=== PATIENT | female | born 2005 | race Caucasian/White ===

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

== ENCOUNTER 2023-10-16 22:20 | Emergency (ER) | payer OTHER, SELFPAY ==
--- NOTE | ~2023-10-16 | CT_ITS ---
EXAMINATION: CT abdomen pelvis w con DATE: 10/17/2023 02:21 INDICATION: Abdominal pain and 3 weeks of nausea and vomiting TECHNIQUE: Computed tomography (CT) of the abdomen and pelvis was performed with 100 mL Omnipaque-350 intravenous contrast. Automated exposure control and iterative reconstruction technique were employe d. The dose-length product was 1529.97 mGy-cm. COMPARISON: None FINDINGS: Minimal dependent atelectasis in the right lower lobe. Heart size is normal. No pericardial or pleura l effusion. Liver, gallbladder, pancreas, bilateral adrenal glands and kidneys are normal. Nonspecifi c splenomegaly measuring 15 cm in length. Bowels including the appendix are normal. Bladder, uterus a nd bilateral adnexa are unremarkable. No free intraperitoneal gas or fluid. No pathologically enlarge d abdominal or pelvic lymphadenopathy. Mild thoracic spondylosis with mild anterior wedging at T11. IMPRESSION: 1. No acute intra-abdominal/pelvic process. 2. Nonspecific mild splenomegaly. Reviewed, dictated and finalized at location A.
[2023-10-16 22:35] VITALS: BP 124/85; PULSE 105; RESP 16; O2SAT 97
[2023-10-16 22:59] LABS: BEDSIDEPREGUCG Negative
[2023-10-16 23:15] LABS: Hematocrit 38.3 % (37.0-47.0); Hemoglobin 12.6 g/dL (12.0-15.0); Mean Corpuscular HGB Conc 32.9 g/dl (32-36); Mean Corpuscular Hemoglobin 27.8 pg (26-34); Mean Corpuscular Volume 84.4 fl (80-100); Mean Platelet Volume 10.1 fl (7.4-10.4); Platelet Count Result 221 k/mm3 (150-375); Red Blood Count 4.54 M/mm3 (4.2-5.4); Red Cell Distribution Width 15.3 % (11.5-14.5)
[2023-10-16 23:22] LABS: Appearance Urine Clear (Clear); Bacteria Urine None Seen /hpf; Bilirubin Urine Negative (Negative); Blood Urine Negative (Negative); Color Urine Dark Yellow (Yellow); Glucose Urine UA Negative (Negative); Ketones Urine Trace mg/dL (Negative); Leukocyte Esterase Ur Trace LEU/UL (Negative); Nitrate Urine Negative (Negative); Non Pathogenic Casts 0-2; Protein Urine 1+ mg/dL (Negative); RBC Urine 0-2 /hpf (0-2); Specific Grav Ur 1.019 (1.001-1.035); Squamous Epithelial Cell Urine Few /hpf (Few); WBC Urine 0-5 /hpf (0-3)
[2023-10-16 23:27] LABS: Alanine Aminotransferase 151 U/L (6-35); Albumin Level 3.7 g/dL (3.5-5.1); Alkaline Phosphatase 81 U/L (38-126); Anion Gap 8 mmol/L (4-12); Aspartate Amino Transferase 146 U/L (14-36); Bilirubin,Total 0.9 mg/dL (0.2-1.3); Blood Urea Nitrogen 7 mg/dL (7-17); Calcium 8.4 mg/dL (8.4-10.2); Carbon Dioxide 28 mmol/L (22-30); Chloride 100 mmol/L (98-107); Estimated Glomerular Filt Rate > 60; Glucose 102 mg/dL (65-110); Lipase 132 U/L (23-300); Potassium 3.5 mmol/L (3.4-5.0); Sodium 136 mmol/L (137-145)
[2023-10-16 23:34] LABS: Add Urine Microscopic? YES
[2023-10-16 23:47] LABS: Atypical Lymphocytes Present; Band Neutrophils Percent 11 % (0-6); Eosinophils Percent Manual 1 % (0-4); Monocytes Percent Manual 7 % (3-9); Neutrophils Percent Manual 55 % (46-73); Platelet Estimate Adequate (Adequate); Total Cells Counted 100
[2023-10-16 23:48] LABS: Anisocytosis 1+; Schistocytes None Seen
[2023-10-17 00:04] VITALS: BP 113/82; PULSE 93; RESP 15; O2SAT 97
[2023-10-17 01:36] VITALS: BP 120/70; PULSE 90; RESP 15; O2SAT 100
--- NOTE | 2023-10-17 01:39 | ED.NAVMDI ---
HPI - Nausea/Vomiting/Diarrhea General Chief complaint: Nausea/Vomiting/Diarrhea Stated complaint: n/v, possible fever, dizziness, headache Time Seen by Provider: 10/17/23 00:29 Source: patient Mode of arrival: ambulatory Limitations: no limitations History of Present Illness HPI Narrative: Patient is a 18-year-old female who presents the ED with complaints. Patient reports having persistent nausea and vomiting since around 09/30. She states she has been unable to keep down any food or drink over the last few days. She denies significant abdominal pain. Also reports a cough for the last 3 weeks, intermittent dizziness, intermittent headaches, myalgias, chills, diaphoresis. She denies any known fever. Denies diarrhea, constipation, shortness of breath, urinary complaints. patient has not tried contacting her doctor. She does Smoke marijuana. Related Data Home Medications Medication Instructions Recorded Confirmed bupropion HCl 150 mg 24 hr tablet, 150 mg PO DAILY 02/11/22 02/11/22 extended release levonorgestrel 120 mcg-e.estradiol 1 patch transdermal WEEKLY 02/11/22 02/11/22 30 mcg/24 hr weekly transderm patch (Twirla) Allergies Allergy/AdvReac Type Severity Reaction Status Date / Time buspirone [From BuSpar] Allergy Unknown Verified 10/16/23 22:21 Review of Systems Review of Systems: CONSTITUTIONAL: See HPI RESPIRATORY: See HPI GASTROINTESTINAL: See HPI. GENITOURINARY: Denies dysuria or hematuria. MUSCULOSKELETAL: Reports myalgia. NEUROLOGIC: See HPI All systems reviewed & are unremarkable except as noted in HPI and below PMFSH Past Medical History Medical History No significant past medical history Exam Narrative: GENERAL: Well appearing, morbidly obese, non-toxic, in no acute distress. HEAD: Normocephalic, atraumatic. RESPIRATORY: Airway patent, respirations nonlabored. Clear to auscultation bilaterally, no rales, rhonchi, wheezing. CARDIOVASCULAR: Regular rate and rhythm without murmurs, rubs, or gallops. ABDOMINAL: Soft, mild diffuse tenderness throughout abdomen, worst throughout right upper quadrant, suprapubic region. Nondistended. Normoactive BS. MUSCULOSKELETAL: Moves all extremities. No gross deformities. SKIN: Warm, dry, normal color. NEURO: A&O X3. Speech clear. Cranial nerves II-XII grossly intact. Steady gait. No ataxic movements. PSYCHIATRIC: Appropriate mood and affect. Normal interaction. Course Vital Signs Vital signs: Vital Signs Pulse Rate 105 H 10/16/23 22:35 Respiratory Rate 16 10/16/23 22:35 Blood Pressure 124/85 10/16/23 22:35 Pulse Oximetry 97 10/16/23 22:35 Oxygen Delivery Room Air 10/16/23 22:35 Pulse Rate 99 10/17/23 02:28 Respiratory Rate 15 10/17/23 02:28 Blood Pressure 112/88 10/17/23 02:28 Pulse Oximetry 100 10/17/23 02:28 Oxygen Delivery Room Air 10/16/23 22:35 MDM - Nausea/Vomiting/Diarrhea MDM Narrative Medical decision making narrative: Patient presents to ED with multiple complaints, nausea, vomiting, cough, dizziness, headaches. Vital signs are stable upon arrival. Patient borderline tachycardic, though resolved by the time of my evaluation. In no acute distress. She does not appear profoundly dehydrated on exam. CBC with white blood cell count of 10.0. Does show 55% neutrophils with 11% bands. CMP with normal electrolytes, stable kidney function. LFTs are mildly elevated, though bilirubin and lipase are normal. Urine with trace ketones, no other signs of infection. Urine negative. Urine drug screen positive for cannabinoids. Viral swabs negative. CT scan of abdomen/pelvis was obtained and negative. Discussed lab and imaging findings with patient. She is feeling better with supportive therapy. Able to tolerate p.o. intake. Discussed possibility of cyclical vomiting, cannabinoid induced hyperemesis. Advised avelino
[2023-10-17 02:05] LABS: Magnesium 2.3 mg/dL (1.6-2.3)
[2023-10-17] MEDS: ONDANSETRON INJ 4 MG/2 ML VIAL IV PUSH (02:25)
[2023-10-17] MEDS: SODIUM CHLORIDE 0.9% IV 1,000 ML 999 ML IV CONT (02:25)
[2023-10-17 02:28] VITALS: BP 112/88; PULSE 99; RESP 15; O2SAT 100
[2023-10-17 02:37] LABS: Influenza A QL RT-PCR Negative (Negative); Influenza B QL RT-PCR Negative (Negative); RSV RNA, RT-PCR Negative (Negative); SARS-CoV-2 RNA PCR Negative (Negative)
[2023-10-17 02:52] LABS: Amphetamine Screen Urine Negative (Negative); Barbiturate Screen Urine Negative (Negative); Benzodiazepines Screen Urine Negative (Negative); Cannabinoid Screen Urine Positive (Negative); Cocaine Screen Urine Negative (Negative); Methadone Screen Urine Negative (Negative); Opiate Screen Urine Negative (Negative); Phencyclidine Screen Urine Negative (Negative)
[2023-10-17] MEDS: diphenhydrAMINE HCl INJ 50 MG/ML VIAL 25 MG IV PUSH (03:11)
[2023-10-17] MEDS: METOCLOPRAMIDE HCL INJ 10 MG/2 ML VIAL IV PUSH (03:12)
[2023-10-17 05:16] VITALS: BP 118/72; PULSE 79; RESP 18; O2SAT 99
== END 2023-10-17 05:20 | disposition home or self-care (01) ==
PROVIDERS: Student in an Organized Health Care Education/Training Program; Emergency Provider Physician Assistant; PCP Family Medicine
DX: R11.2 Nausea with vomiting, unspecified (principal); Z20.822 Contact with and (suspected) exposure to COVID-19
CPT/HCPCS: 36415; 74177; 80053; 80307; 81001; 81025; 83690; 83735; 85025; 87637; 96361; 96374; 96375; 99284; J1200; J2405; J2765; J7030; Q9967